=== PATIENT | male | born 1960 | race Caucasian/White ===

== ENCOUNTER 2016-11-25 06:16 | Day surgery (SDC) | payer BC ==
[~2016-11-25] VITALS: Ht 180.3 cm; Wt 82.3 kg
[2016-11-25] VITALS (7 sets, daily range): BP systolic 117–128; BP diastolic 71–81; PULSE 52–63; TEMP 97.3–97.6
[~2016-11-25 06:16] MED LIST: AMOXICILLIN 8751 TAB PO; PRILOSEC 20MG20 MG PO
[2016-11-25] MEDS ORDERED: OMEGA-3 1000 MG1 CAP PO (07:20)
[2016-11-25] MEDS ORDERED: CALCIUM 600MG+D1 TAB PO (07:21)
[2016-11-25] MEDS ORDERED: GLUCOSAMINE, CH1 TAB PO (07:21)
[2016-11-25] MEDS ORDERED: FLONASEALLERGY NS (07:22)
[2016-11-25] MEDS ORDERED: TYLENOL 500MG500 MG PO (07:22)
[2016-11-25] MEDS ORDERED: ZOFRAN ODT4 MG PO (09:33)
[2016-11-25] MEDS ORDERED: NORCO 325 MG-51 TAB PO (09:33)
== END 2016-11-25 16:36 | disposition home or self-care (01) ==
LOC: SDCO 06:16
DX: K40.90 Unilateral inguinal hernia, without obstruction or gangrene, not specified as recurrent (principal)
CPT/HCPCS: A4315; C1713; C1781; J1100; J1170; J2175; J2270; J2405; J2704; J2710; J3010; J7120

== ENCOUNTER → 2017-04-02 | Outpatient (CLI) | payer BC ==
[~2017-04-02] MED LIST changes: +ADVIL200 MG PO; +CALCIUM 600MG+D1 TAB PO; +COLACE 100100 MG/CAP PO; +FLONASEALLERGY NS; +GLUCOSAMINE, CH1 TAB PO; +LEXAPRO 10MG10 MG PO; +MOTRIN 600600 MG/TAB PO; +NORCO 325 MG-51 TAB PO; +OMEGA-3 1000 MG1 CAP PO; +TYLENOL 500MG500 MG PO; +ZOFRAN ODT4 MG PO
== END ==
LOC: COL.RAD 11:15
DX: K40.91 Unilateral inguinal hernia, without obstruction or gangrene, recurrent (principal)

== ENCOUNTER 2017-04-14 08:18 | Day surgery (SDC) | payer BC ==
[~2017-04-14] VITALS: Ht 180.3 cm; Wt 82.7 kg
[2017-04-14] VITALS (8 sets, daily range): BP systolic 101–139; BP diastolic 62–76; PULSE 42–51; TEMP 97.4–97.6
[~2017-04-14 08:18] MED LIST changes: -ADVIL200 MG PO; -COLACE 100100 MG/CAP PO; -LEXAPRO 10MG10 MG PO; -MOTRIN 600600 MG/TAB PO
[2017-04-14] MEDS ORDERED: LEXAPRO 10MG10 MG PO (08:46)
[2017-04-14] MEDS ORDERED: ADVIL200 MG PO (09:40)
[2017-04-14] MEDS ORDERED: COLACE 100100 MG/CAP PO (11:42)
[2017-04-14] MEDS ORDERED: MOTRIN 600600 MG/TAB PO (11:42)
[2017-04-14] MEDS ORDERED: NORCO 325 MG-51 TAB PO (11:42)
== END 2017-04-14 15:55 | disposition home or self-care (01) ==
LOC: SDCO 08:18
DX: K40.91 Unilateral inguinal hernia, without obstruction or gangrene, recurrent (principal); K21.9 Gastro-esophageal reflux disease without esophagitis
CPT/HCPCS: C1781; J0690; J1100; J2250; J2405; J2704; J2710; J3010; J7120

== ENCOUNTER → 2022-01-10 | Outpatient (CLI) | payer BC ==
[~2022-01-10] MED LIST changes: +ADVIL200 MG PO; +COLACE 100100 MG/CAP PO; +LEXAPRO 10MG10 MG PO; +MOTRIN 600600 MG/TAB PO
== END ==
LOC: COL.RAD 12:22
DX: J20.9 Acute bronchitis, unspecified (principal); J21.9 Acute bronchiolitis, unspecified